=== PATIENT | male | born 1995 | race African-American/Black ===

== ENCOUNTER 2016-07-14 16:22 | Emergency (ER) | payer MEDICAID ==
[~2016-07-14] VITALS: Ht 172.7 cm; Wt 80.5 kg
[2016-07-14] MEDS ORDERED: ACETAMINOPHEN 325 MG TABLET PO ONE (19:45)
[2016-07-14] MEDS ORDERED: CefTRIAXone SODIUM 1 GM/VIAL IM ONE (19:45)
[2016-07-14] MEDS ORDERED: DEXAMETHASONE SOD PHOS 4 MG/ML 5 ML VIAL IM ONE (19:45)
[2016-07-14] MEDS ORDERED: LIDOCAINE HCL/PF 1% 2 ML VIAL IM ONE (19:45)
[2016-07-14 21:14] VITALS: BP 127/79
== END 2016-07-14 21:16 | disposition home or self-care (01) ==
LOC: EMS 16:23
DX: J02.0 Streptococcal pharyngitis (principal); F12.90 Cannabis use, unspecified, uncomplicated; Z87.891 Personal history of nicotine dependence
CPT/HCPCS: 96372; 99284; J0696; J1100; J3490